=== PATIENT | female | born 1940 | race Caucasian/White ===

== ENCOUNTER 2018-03-17 11:29 | Emergency (ER) | payer MEDICARE, OTHER ==
[~2018-03-17] VITALS: Ht 162.6 cm; Wt 49.9 kg
[2018-03-17 12:32] VITALS: BP 175/81
== END 2018-03-17 14:10 | disposition home or self-care (01) ==
LOC: ER 11:29
DX: M48.02 Spinal stenosis, cervical region (principal); M54.12 Radiculopathy, cervical region; R20.0 Anesthesia of skin; J44.9 Chronic obstructive pulmonary disease, unspecified; I10 Essential (primary) hypertension; F17.210 Nicotine dependence, cigarettes, uncomplicated
CPT/HCPCS: 72040

== ENCOUNTER 2018-03-19 14:51 | Emergency (ER) | payer MEDICARE, OTHER ==
[~2018-03-19] VITALS: Ht 160 cm; Wt 49.9 kg
[2018-03-19 16:09] LABS: Basophils # (auto) 0.1 uL; Basophils % (auto) 1.2 % (0.0-2.0); Eosinophils # (auto) 0 uL; Eosinophils % (auto) 0.5 % (0.0-7.0); Hematocrit 40.3 % (36.0-46.0); Hemoglobin 13.4 g/dL (12.2-16.2); Lymphocytes # (auto) 3.1 uL; Lymphocytes % (auto) 37.6 % (10.0-50.0); Mean Corpuscular Hemoglobin 29.5 pg (28.0-32.0); Mean Corpuscular Hgb Conc. 33.2 g/dL (32.0-36.0); Mean Corpuscular Volume 88.8 fL (80.0-100.0); Monocytes # (auto) 0.6 uL; Monocytes % (auto) 6.8 % (0.0-12.0); Neutrophils # (auto) 4.5 uL; Neutrophils % (auto) 53.9 % (37.0-80.0); Nucleated Red Blood Cells % 0.1 %; Platelet Count (auto) 254 10^3/uL (140-450); Red Blood Cells 4.53 10^6/uL (4.0-5.20); Red Cell Distribution Width 15.5 % (11.8-14.3); White Blood Cell 8.3 10^3/uL (4.4-10.8)
[2018-03-19 16:16] LABS: Albumin 3.5 g/dL (3.4-5.0); BUN/Creatinine Ratio 27.5; Calcium 8.5 mg/dL (8.5-10.1); Potassium 4.1 mmol/L (3.5-5.1)
[2018-03-19 16:20] LABS: INR 0.91 (0.9-1.15); Partial Thromboplastin Time 26.5 sec (23.78-33.04); Prothrombin Time 9.8 sec (9.27-12.13)
[2018-03-19 16:21] LABS: Bilirubin, Total 0.5 mg/dL (0.2-1.0); Total Protein 6.7 g/dL (6.4-8.2)
[2018-03-19] MEDS ORDERED: DEXAMETHASONE SOD PHOS 10MG/1ML VIAL INJ IV ONE (18:00)
[2018-03-19 18:44] LABS: Urine Bacteria FEW /hpf (None Seen); Urine Blood Negative /uL (Negative); Urine Specific Gravity 1.008 (1.001-1.035); Urine WBC 4 /hpf (0 - 5)
[2018-03-19] MEDS ORDERED: traMADol HCL 50 MG TAB PO PRN (19:30)
[2018-03-19 19:43] VITALS: BP 160/79
[2018-03-19] MEDS ORDERED: HYDROcodone-ACET 5/325MG TAB PO PRN (19:45)
[2018-03-19] MEDS ORDERED: ACETAMINOPHEN 325 MG TAB PO PRN (19:45)
[2018-03-19] MEDS ORDERED: DOCUSATE SOD 100 MG CAP PO PRN (19:45)
[2018-03-19] MEDS ORDERED: TEMAZEPAM 15 MG CAP PO PRN (19:45)
[2018-03-19] MEDS ORDERED: ONDANSETRON HCL 4 MG/2 ML VIAL IV PRN (19:45)
[2018-03-19] MEDS ORDERED: LEVOFLOXACIN 500MG 100 ML IV ONE (20:30)
[2018-03-19] MEDS ORDERED: SODIUM CHLOR 0.9% PF (SALINE LOCK) 10ML VIAL/SYR IV SCH (22:00)
[2018-03-20] MEDS ORDERED: FAMOTIDINE 20 MG TAB PO SCH (10:00)
[2018-03-20] MEDS ORDERED: ENOXAPARIN SOD 40 MG/0.4 ML SYRINGE SC SCH (10:00)
[2018-03-20] MEDS ORDERED: MULTIPLE VITAMIN TAB PO SCH (10:00)
[2018-03-20] MEDS ORDERED: HCTZ 25 MG TAB PO SCH (10:00)
[2018-03-20] MEDS ORDERED: LEVOFLOXACIN 250MG 50 ML IV SCH (21:00)
== END 2018-03-19 19:51 | disposition left against medical advice (07) ==
LOC: ER 14:51
DX: M54.12 Radiculopathy, cervical region (principal); M06.9 Rheumatoid arthritis, unspecified; J43.9 Emphysema, unspecified; Z53.29 Procedure and treatment not carried out because of patient's decision for other reasons; R79.89 Other specified abnormal findings of blood chemistry; J44.9 Chronic obstructive pulmonary disease, unspecified; I10 Essential (primary) hypertension; F17.210 Nicotine dependence, cigarettes, uncomplicated
CPT/HCPCS: 36415; 70450; 71045; 72125; 80053; 81001; 84484; 85025; 85379; 85610; 85730; 93005; 94761; 96374; 99285; J1100

== ENCOUNTER 2018-03-20 14:07 | Emergency (ER) | payer MEDICARE, OTHER ==
[~2018-03-20] VITALS: Ht 160 cm; Wt 49.9 kg
[2018-03-20 15:22] VITALS: BP 168/80
== END 2018-03-20 15:38 | disposition home or self-care (01) ==
LOC: ER 14:11
DX: S86.912A Strain of unspecified muscle(s) and tendon(s) at lower leg level, left leg, initial encounter (principal); J44.9 Chronic obstructive pulmonary disease, unspecified; I10 Essential (primary) hypertension; F17.210 Nicotine dependence, cigarettes, uncomplicated; Z90.710 Acquired absence of both cervix and uterus; Z86.718 Personal history of other venous thrombosis and embolism; X58.XXXA Exposure to other specified factors, initial encounter; Y93.89 Activity, other specified; Y92.89 Other specified places as the place of occurrence of the external cause; Y99.8 Other external cause status
CPT/HCPCS: 93971

== ENCOUNTER 2018-03-27 12:53 | Emergency (ER) | payer MEDICARE, OTHER ==
[~2018-03-27] VITALS: Ht 160 cm; Wt 49.9 kg
[2018-03-27 13:44] LABS: Basophils # (auto) 0.1 uL; Basophils % (auto) 0.9 % (0.0-2.0); Eosinophils # (auto) 0 uL; Eosinophils % (auto) 0.2 % (0.0-7.0); Hematocrit 43.2 % (36.0-46.0); Hemoglobin 14.7 g/dL (12.2-16.2); Lymphocytes # (auto) 2.8 uL; Lymphocytes % (auto) 29.4 % (10.0-50.0); Mean Corpuscular Hemoglobin 30.2 pg (28.0-32.0); Mean Corpuscular Hgb Conc. 34.1 g/dL (32.0-36.0); Mean Corpuscular Volume 88.4 fL (80.0-100.0); Monocytes # (auto) 0.7 uL; Monocytes % (auto) 7.6 % (0.0-12.0); Neutrophils # (auto) 5.9 uL; Neutrophils % (auto) 61.9 % (37.0-80.0); Nucleated Red Blood Cells % 0.1 %; Platelet Count (auto) 280 10^3/uL (140-450); Red Blood Cells 4.88 10^6/uL (4.0-5.20); Red Cell Distribution Width 15.7 % (11.8-14.3); White Blood Cell 9.6 10^3/uL (4.4-10.8)
[2018-03-27 13:55] LABS: Alanine Aminotransferase 16 U/L (13-56); Albumin 3.7 g/dL (3.4-5.0); Anion Gap 9 (5-15); Aspartate Aminotransferase 7 U/L (15-37); BUN/Creatinine Ratio 23.2; Blood Urea Nitrogen 22 mg/dL (7-18); Carbon Dioxide 21 mmol/L (21-32); Chloride 111 mmol/L (98-107); GFR African American 74 mL/min; GFR Non-African American 61 mL/min; Glucose 93 mg/dL (74-106); Magnesium 2.4 mg/dL (1.6-2.6); Potassium 3.9 mmol/L (3.5-5.1); Sodium 141 mmol/L (136-145)
[2018-03-27 13:57] LABS: INR 0.95 (0.9-1.15); Partial Thromboplastin Time 28.3 sec (23.78-33.04); Prothrombin Time 10.2 sec (9.27-12.13)
[2018-03-27 14:00] LABS: Alkaline Phosphatase 62 U/L (45-117); Total Protein 7.1 g/dL (6.4-8.2)
[2018-03-27 14:43] VITALS: BP 146/45
[2018-03-27] MEDS ORDERED: cloNIDine HCL 0.1 MG TAB PO ONE (14:45)
== END 2018-03-27 15:27 | disposition left against medical advice (07) ==
LOC: ER 12:55
DX: I10 Essential (primary) hypertension (principal); R53.1 Weakness; J44.9 Chronic obstructive pulmonary disease, unspecified; F17.210 Nicotine dependence, cigarettes, uncomplicated; Z90.710 Acquired absence of both cervix and uterus; Z90.89 Acquired absence of other organs; Z88.0 Allergy status to penicillin; Z53.29 Procedure and treatment not carried out because of patient's decision for other reasons
CPT/HCPCS: 36415; 70450; 71045; 80053; 83735; 84484; 85025; 85610; 85730; 93005; 94761

== ENCOUNTER 2022-03-24 12:35 | Inpatient (IN) | payer MEDICARE, OTHER, MEDICAID ==
[~2022-03-24] VITALS: Ht 160 cm; Wt 37.1 kg
[2022-03-24] MEDS ORDERED: SODIUM CHLORIDE 0.9% 1,000 ML IVB ONE (13:00)
[2022-03-24 13:15] LABS: Basophils # (auto) 0 10 ^3/uL (0-0.2); Basophils % (auto) 0.8 % (0.0-2.0); Eosinophils # (auto) 0 10 ^3/uL (0-0.8); Eosinophils % (auto) 0.5 % (0.0-7.0); Hematocrit 37.8 % (36.0-46.0); Hemoglobin 12.5 g/dL (12.2-16.2); Lymphocytes # (auto) 1.2 10 ^3/uL (0.4-5.4); Mean Corpuscular Hemoglobin 28.6 pg (28.0-32.0); Mean Corpuscular Hgb Conc. 33.2 g/dL (32.0-36.0); Mean Corpuscular Volume 86.3 fL (80.0-100.0); Monocytes # (auto) 0.3 10 ^3/uL (0-1.3); Monocytes % (auto) 5.2 % (0.0-12.0); Neutrophils # (auto) 4.2 10 ^3/uL (1.6-8.6); Neutrophils % (auto) 72.5 % (37.0-80.0); Red Blood Cells 4.38 10^6/uL (4.0-5.20); Red Cell Distribution Width 15.4 % (11.8-14.3); White Blood Cell 5.8 10^3/uL (4.4-10.8)
[2022-03-24 13:42] LABS: Albumin 3.5 g/dL (3.4-5.0); Calcium 9.5 mg/dL (8.5-10.1); Magnesium 2.5 mg/dL (1.6-2.6); Potassium 5.2 mmol/L (3.5-5.1)
[2022-03-24 13:45] LABS: BUN/Creatinine Ratio 23.8; Bilirubin, Total 1.1 mg/dL (0.2-1.0); Total Protein 6.5 g/dL (6.4-8.2)
[2022-03-24] MEDS ORDERED: NITROGLYCERIN 0.4 MG SL TAB SL PRN (16:00)
[2022-03-24] MEDS ORDERED: ACETAMINOPHEN 325 MG TAB PO PRN (16:00)
[2022-03-24] MEDS ORDERED: MORPHINE SULFATE INJ 2 MG/ml SYRG IV PRN (16:00)
[2022-03-24] MEDS ORDERED: ASPirin 325 MG TAB PO ONE (16:00)
[2022-03-24] MEDS ORDERED: PANTOPRAZOLE 40 MG/10 ML VIAL INJ IV ONE (16:15)
[2022-03-24] MEDS: SODIUM CHLORIDE 0.9% 1,000 ML IV SCH (21:58)
[2022-03-25] MEDS: SODIUM CHLORIDE 0.9% 1,000 ML IV SCH (08:40)
[2022-03-25] MEDS: PANTOPRAZOLE 40 MG/10 ML VIAL INJ IV SCH ×2 (08:54→08:59)
[2022-03-25] MEDS: ASPirin 81 mg TAB PO SCH (08:54)
[2022-03-25] MEDS: ENOXAPARIN SOD 40 MG/0.4 ML SYRINGE SC SCH ×2 (08:54→09:00)
[2022-03-25 09:00] VITALS: BP 130/81
[2022-03-25] MEDS ORDERED: HCTZ 25 MG TAB PO ONE (10:15)
[2022-03-25 12:50] VITALS: BP 125/56
[2022-03-25 17:00] VITALS: BP 133/61
[2022-03-25 20:00] VITALS: BP 148/89
[2022-03-26 09:00] VITALS: BP 138/61
[2022-03-26] MEDS ORDERED: TRAM50TA2 PO (09:10)
[2022-03-26] MEDS: ASPirin 81 mg TAB PO SCH (09:31)
[2022-03-26] MEDS: ENOXAPARIN SOD 40 MG/0.4 ML SYRINGE SC SCH (09:32)
[2022-03-26] MEDS ORDERED: HCTZ 25 MG TAB PO SCH (10:00)
[2022-03-26 10:59] VITALS: BP 138/61
[2022-03-26 12:39] VITALS: BP 116/77
[2022-03-26 17:11] VITALS: BP 139/79
[2022-03-26] MEDS: SODIUM CHLORIDE 0.9% 1,000 ML IV SCH (18:00)
== END 2022-03-26 19:32 | DRG 302 ==
LOC: EDBD 12:35 → ER 12:35 → TELE 15:55 → TELE-CENTR 23:48
PROVIDERS: ADMIT Nurse Practitioner Family; ATTEND Nurse Practitioner Family
DX: I25.10 Atherosclerotic heart disease of native coronary artery without angina pectoris (principal); U07.1 COVID-19; I24.9 Acute ischemic heart disease, unspecified; E87.5 Hyperkalemia; I10 Essential (primary) hypertension; I49.3 Ventricular premature depolarization; J98.4 Other disorders of lung; M06.9 Rheumatoid arthritis, unspecified; Z98.82 Breast implant status; Z90.710 Acquired absence of both cervix and uterus; I25.2 Old myocardial infarction; Z87.891 Personal history of nicotine dependence; Z83.3 Family history of diabetes mellitus; Z80.9 Family history of malignant neoplasm, unspecified; Z88.0 Allergy status to penicillin
CPT/HCPCS: 36415; 71045; 80053; 83735; 84484; 85025; 87426; 93005; 93306; C9113; G0378